=== PATIENT | male | born 1950 | race Caucasian/White ===

== ENCOUNTER 2016-12-08 20:45 | Emergency (ER) | payer OTHER ==
[~2016-12-08 20:45] MED LIST: HYDR-3580 PO; RIVA10 PO
[2016-12-08 20:52] VITALS: BP 181/100
[2016-12-08 20:53] VITALS: BP 192/105; O2SAT 96
[2016-12-08] MEDS ORDERED: PROP20TA3 PO (21:02)
[2016-12-08] MEDS ORDERED: MULTTAB67 PO (21:02)
[2016-12-08 21:10] VITALS: BP 155/96; PULSE 68; TEMP 97.8; O2SAT 96
[2016-12-08 21:28] LABS: AUTOMATED NEUTROPHIL # 3.7 TH/MM3 (1.8-7.7); BASOPHIL # 0.1 TH/MM3 (0-0.2); EOSINOPHIL # 0.2 TH/MM3 (0-0.4); HEMO FLAGS DIFF FINAL; LYMPH % 31.7 % (9.0-44.0); LYMPHOCYTE # 2.2 TH/MM3 (1.0-4.8); MEAN CELL VOLUME 88.6 FL (80.0-100.0); MEAN CORPUSCULAR HEMOGLOBIN 28.9 PG (27.0-34.0); MEAN CORPUSCULAR HGB CONC 32.6 % (32.0-36.0); MONO % 10.3 % (0.0-8.0); PLATELET COUNT 140 TH/MM3 (150-450); RED CELL DISTRIBUTION WIDTH 12.8 % (11.6-17.2); WHITE BLOOD COUNT 6.9 TH/MM3 (4.0-11.0)
[2016-12-08 21:30] VITALS: BP 153/94; PULSE 66; RESP 16; O2SAT 97
[2016-12-08 21:33] LABS: CHLORIDE 108 MEQ/L (98-107); SODIUM (NA) 144 MEQ/L (136-145)
[2016-12-08 21:37] LABS: ANION GAP 7 MEQ/L (5-15); BLOOD UREA NITROGEN 20 MG/DL (7-18); MAGNESIUM 2.1 MG/DL (1.5-2.5)
[2016-12-08 21:40] LABS: ALT (GPT) 25 U/L (12-78); AST (GOT) 24 U/L (15-37); GLOMERULAR FILTRATION RATE 75 ML/MIN (>89)
[2016-12-08 21:41] LABS: TOTAL BILIRUBIN ADULT 0.5 MG/DL (0.2-1.0)
[2016-12-08 21:43] LABS: ALKALINE PHOSPHATASE 83 U/L (45-117)
[2016-12-08 21:50] VITALS: BP 148/89; PULSE 67; O2SAT 97
--- NOTE | 2016-12-08 21:59 | PD ---
HPI Chief Complaint: generalized malaise Time Seen by Provider: 20:54 Travel History International Travel<30 days: No Contact w/Intl Traveler<30days: No Traveled to known affect area: No History of Present Illness HPI 66-year-old male says he was driving on the road. He pulled over and told his that he just didn't feel well. He did not have any pain. He did not have any numbness tingling or weakness. [place] a little lightheaded. He has had some mild symptoms like this in the past this seemed more severe. He has had a recent stress test of his heart which was normal. He has been told that he does not drink enough fluids. PFSH Past Medical History Arthritis: Yes (OSTEOARTHRITIS) Cancer: No Cardiovascular Problems: No Diabetes: No Endocrine: No Genitourinary: No Hepatitis: No Hiatal Hernia: No Immune Disorder: No Kidney Stones: Yes (?) Musculoskeletal: Yes (OA) Neurologic: Yes (ESSENTIAL TREMORS) Psychiatric: No Reproductive: No Respiratory: No Thyroid Disease: No Tetanus Vaccination: > 5 Years Influenza Vaccination: No Past Surgical History AICD: No Joint Replacement: Yes (BOTH HIPS "RESURFACED") Pacemaker: Yes Other Surgery: Yes Social History Alcohol Use: No Tobacco Use: No Substance Use: No Allergies-Medications (Allergen,Severity, Reaction): Coded Allergies: Greek [place] Tree (Verified Allergy, Intermediate, Sneezing, 12/08/16) Negrita Red [place] Tree (Verified Allergy, Intermediate, Sneezing, 12/08/16 ) White [place] Tree (Verified Allergy, Intermediate, Sneezing, 12/08/16 ) Reported Meds & Prescriptions Reported Meds & Active Scripts Active Reported Multiple Vitamin 1 Tab 1 Tab PO DAILY Propranolol (Propranolol HCl) 20 Mg Tab 20 Mg PO TID Review of Systems General / Constitutional: No: Fever, Chills Eyes: No: Diploplia, Blurred Vision HENT: Positive: Lightheadedness, No: Headaches Cardiovascular: No: Chest Pain or Discomfort, Palpitations Gastrointestinal: No: Vomiting Genitourinary: No: Urgency, Frequency Musculoskeletal: No: Myalgias, Arthralgias Skin: No Rash Neurologic: Positive: Dizziness, Focal Abnormalities, No: Weakness Psychiatric: No: Anxiety Hematologic/Lymphatic: No: Easy Bruising Physical Exam Narrative GENERAL: Well-developed male SKIN: Focused skin assessment warm/dry. HEAD: Atraumatic. Normocephalic. EYES: Pupils equal and round. No scleral icterus. No injection or drainage. ENT: No nasal bleeding or discharge. Mucous membranes pink and moist. NECK: Trachea midline. No JVD. CARDIOVASCULAR: Regular rate and rhythm. No murmur appreciated. RESPIRATORY: No accessory muscle use. Clear to auscultation. Breath sounds equal bilaterally. GASTROINTESTINAL: Abdomen soft, non-tender, nondistended. Hepatic and splenic margins not palpable. MUSCULOSKELETAL: No obvious deformities. No clubbing. No cyanosis. No edema. NEUROLOGICAL: Awake and alert. No obvious cranial nerve deficits. Motor grossly within normal limits. Normal speech. PSYCHIATRIC: Appropriate mood and affect; insight and judgment normal. Data Data Last Documented VS Vital Signs Date Time Temp Pulse Resp B/P Pulse Ox O2 Delivery O2 Flow Rate FiO2 12/08/16 21:10 97.8 68 155/96 96 Room Air Orders Electrocardiogram (12/08/16 20:54) Complete Blood Count With Diff (12/08/16 20:54) Comprehensive Metabolic Panel (12/08/16 20:54) Troponin I (12/08/16 20:54) Magnesium (Mg) (12/08/16 20:54) Labs Laboratory Tests Test 12/08/16 20:55 White Blood Count 6.9 TH/MM3 Red Blood Count 5.30 MIL/MM3 Hemoglobin 15.3 GM/DL Hematocrit 47.0 % Mean Corpuscular Volume 88.6 FL Mean Corpuscular Hemoglobin 28.9 PG Mean Corpuscular Hemoglobin 32.6 % Concent Red Cell Distribution Width 12.8 % Platelet Count 140 TH/MM3 Mean Platelet Volume 9.6 FL Neutrophils (%) (Auto) 54.0 % Lymphocytes (%) (Auto) 31.7 % Monocytes (%) (Auto) 10.3 % Eosinophils (%) (Auto) 3.0 % Basophils (%) (Auto) 1.0 % Neutrophils # (Auto) 3.7 TH/MM3 Lymphocytes # (Auto) 2.2 TH/MM3 Monocytes # (Auto) 0.7 TH/MM3 Eosinophils # (Auto) 0.2 TH/MM3 Basophils # (Auto) 0.1 TH/MM3 CBC Comment DIFF FINAL Differential Comment Sodium Level 144 MEQ/L Potassium Level 4.0 MEQ/L Chloride Level 108 MEQ/L Carbon Dioxide Level 29.0 MEQ/L Anion Gap 7 MEQ/L Blood Urea Nitrogen 20 MG/DL Creatinine 1.00 MG/DL Estimat Glomerular Filtration 75 ML/MIN Rate Random Glucose 77 MG/DL Calcium Level 8.6 MG/DL Magnesium Level 2.1 MG/DL Total Bilirubin 0.5 MG/DL Aspartate Amino Transf 24 U/L (AST/SGOT) Alanine Aminotransferase 25 U/L (ALT/SGPT) Alkaline Phosphatase 83 U/L Troponin I LESS THAN 0.02 NG/ML Total Protein 7.3 GM/DL Albumin 3.5 GM/DL [facility] Medical Decision Making Medical Screen Exam Complete: Yes Emergency Medical Condition: Yes Medical Record Reviewed: Yes Differential Diagnosis Differential includes dysrhythmia, TIA, atypical seizure Narrative Course Patient appears stable here. There is no neurologic deficit and there is no history of any focal deficit. Lab work now is unremarkable. He is stable for discharge. This may have represented a history of brief dysrhythmia or other unusual Diagnosis Primary Impression: generalized malaise Disposition: DISCHARGE HOME Condition: Stable Jeff Judd MD Dec 08, 2016 21:59
--- NOTE | 2016-12-09 12:25 | EKG ---
Date Performed: 12/08/2016 Time Performed: 20:56:57 PTAGE: 66 years EKG: Sinus rhythm MODERATE INTRAVENTRICULAR CONDUCTION DELAY BORDERLINE ECG INTERPRETATION BASED ON A DEFAULT AGE OF 4 0 YEARS PREVIOUS TRACING 11/24/12 Compared to prior tracing no significant change DOCTOR: Brandon Saravia Interpretating Date/Time 12/09/2016 12:23:13
== END 2016-12-08 22:21 | disposition home or self-care (01) ==
LOC: PHED 20:45
DX: R53.81 Other malaise (principal); R42 Dizziness and giddiness; Z79.899 Other long term (current) drug therapy
CPT/HCPCS: 80053; 83735; 84484; 85025; 93005; 99283